=== PATIENT | female | born 1940 | race Caucasian/White ===

== ENCOUNTER 2022-09-21 10:16 | Outpatient (CLI) | payer MEDICARE, BC, SELFPAY | END 2022-09-21 10:17 | disposition home or self-care (01) | LOC: OP CLINIC 10:19 | PROVIDERS: PCP Family Medicine; Visit Provider Internal Medicine Gastroenterology | DX: Z12.11 Encounter for screening for malignant neoplasm of colon (principal); K63.5 Polyp of colon | CPT/HCPCS: 45380; 88305; J2250; J3010 ==